=== PATIENT | female | born 1995 | race Hispanic/Latino ===

== ENCOUNTER 2017-12-16 23:37 | Emergency (ER) | payer OTHER ==
[2017-12-16 23:53] VITALS: BP 133/76; PULSE 98; RESP 18; TEMP 98.4; O2SAT 98
--- NOTE | 2017-12-17 01:56 | ED PDOC ---
HPI: Headache Time Seen by Provider: 12/17/17 00:00 Chief Complaint (Nursing): Headache Chief Complaint (Provider): Headache History Per: Patient History/Exam Limitations: no limitations Onset/Duration Of Symptoms: Days (x5 weeks) Additional Complaint(s): Patient is a 22 y/o female with no significant medical history who presents to the ED complaining of headache for the past x5 weeks. Patient reports that she came from [place] x3 days ago and is going back tomorrow but back home she saw 5 other doctors for the same symptoms. She states that the headache comes and goes and it started as a really sharp pain. From prior visits once she was told that it was anxiety and other times she was told it was migraine; patient was prescribed Imitrex but it provided no relief. Patient believes that she lost some right peripheral vision. She denies fever, vomiting, or neck stiffness. Past Medical History Reviewed: Historical Data, Nursing Documentation, Vital Signs Vital Signs: Last Vital Signs Temp 98.4 F 12/16/17 23:49 Pulse 98 H 12/16/17 23:49 Resp 18 12/16/17 23:49 BP 133/76 12/16/17 23:49 Pulse Ox 98 12/16/17 23:49 - Medical History PMH: No Chronic Diseases - Surgical History Surgical History: No Surg Hx - Family History Family History: States: Unknown Family Hx - Social History Current smoker - smoking cessation education provided: No Alcohol: None Drugs: Denies - Immunization History Hx Tetanus Toxoid Vaccination: No - Allergies Allergies/Adverse Reactions: Allergies Allergy/AdvReac Type Severity Reaction Status Date / Time diphenhydramine Allergy SHORTNESS Verified 12/16/17 23:48 [From Benadryl] OF BREATH Review of Systems ROS Statement: Except As Marked, All Systems Reviewed And Found Negative Constitutional: Negative for: Fever Eyes: Positive for: Vision Change (right peripheral) Gastrointestinal: Negative for: Vomiting Musculoskeletal: Negative for: Neck Pain Neurological: Positive for: Headache Physical Exam - Reviewed Nursing Documentation Reviewed: Yes Vital Signs Reviewed: Yes - Physical Exam Appears: Positive for: Non-toxic (when i walked into the room, pt comfortably resting, texting on her phone), No Acute Distress Head Exam: Positive for: ATRAUMATIC, NORMAL INSPECTION, NORMOCEPHALIC Skin: Positive for: Normal Color, Warm, Dry Eye Exam: Positive for: EOMI, Normal appearance, PERRL ENT: Positive for: Normal ENT Inspection Neck: Positive for: Normal, Painless ROM, Supple Cardiovascular/Chest: Positive for: Regular Rate, Rhythm. Negative for: Murmur Respiratory: Positive for: Normal Breath Sounds. Negative for: Respiratory Distress Gastrointestinal/Abdominal: Positive for: Normal Exam, Soft. Negative for: Tenderness Back: Positive for: Normal Inspection. Negative for: L CVA Tenderness, R CVA Tenderness Extremity: Positive for: Normal ROM. 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 Negative for: Motor/Sensory Deficits, Aphasia, Facial Droop - ECG O2 Sat by Pulse Oximetry: 98 (RA) Pulse Ox Interpretation: Normal Medical Decision Making Medical Decision Making: Time: 00:37 Impression: Headache, for 5 weeks --Patient is refusing visual acuity and refusing blood work. She had imaging done in [place] but has no records here. pt agreed to CT head to R/o intracranial abnormality Initial Plan: --CT head without contrast --CMP --CBC w/ diff --Reglan 10 mg IVP --POC urine preg Time: 02:08 CT head FINDINGS: Brain: Unremarkable. No hemorrhage. No significant white matter disease. No edema. Ventricles: Unremarkable. No ventriculomegaly. Bones/joints: Unremarkable. No acute fracture. Soft tissues: Unremarkable. Sinuses: Minimal patchy sinus disease. Mastoid air cells: Unremarkable. No mastoid effusion. Orbits: The globe and lens are intact. IMPRESSION: No evidence of an acute intracranial hemorrhage, midline shift or mass effect is identified. Time: 02:46 throughout ER stay pt comfortable and in no distress. she ias requesting more pain medicine whenever i walk into the room. --Patient has been made aware of her results. Patient does not want to wait and is leaving. Her labs and scan have been reviewed and show no clinically significant abnormality. explained to pt that has to follow up with neurologist and opthalmologist. she doesnt want to see anyone here locally, wants to follow up in [place] with her doctors in the [place] [facility] there. ----- Scribe Attestation: Documented by Srini Bonds, acting as a scribe for Bryson Pandey MD Provider Scribe Attestation: All medical record entries made by the Scribe were at my direction and personally dictated by me. I have reviewed the chart and agree that the record accurately reflects my personal performance of the history, physical exam, medical decision making, and the department course for this patient. I have also personally directed, reviewed, and agree with the discharge instructions and disposition. Disposition - Clinical Impression Clinical Impression: Migraine - Patient ED Disposition Is Patient to be Admitted: No Counseled Patient/Family Regarding: Studies Performed, Diagnosis, Need For Followup - Disposition Disposition: Left W/O Treatment Disposition Time: 02:45 Condition: STABLE Forms: [employer] (Armenian)
--- NOTE | 2017-12-17 08:55 | CT ---
Date of service: 12/17/2017 PROCEDURE: CT HEAD WITHOUT CONTRAST. HISTORY: headache COMPARISON: None available. TECHNIQUE: Axial computed tomography images were obtained through the head/brain without intravenous contrast. Radiation dose: Total exam DLP = mGy-cm. This CT exam was performed using one or more of the following dose reduction techniques: Automated exposure control, adjustment of the mA and/or kV according to patient size, and/or use of iterative reconstruction technique. FINDINGS: HEMORRHAGE: No intracranial hemorrhage. BRAIN: No mass effect or edema. No atrophy or chronic microvascular ischemic changes. VENTRICLES: Unremarkable. No hydrocephalus. CALVARIUM: Unremarkable. PARANASAL SINUSES: Unremarkable as visualized. No significant inflammatory changes. MASTOID AIR CELLS: Unremarkable as visualized. No inflammatory changes. OTHER FINDINGS: None. IMPRESSION: Normal CT of the Head.
== END 2017-12-17 03:00 | disposition left against medical advice (07) ==
LOC: H.ER 23:37
DX: G43.909 Migraine, unspecified, not intractable, without status migrainosus (principal); F41.9 Anxiety disorder, unspecified